=== PATIENT | male | born 1965 | race African-American/Black ===

== ENCOUNTER 2019-11-20 23:55 | Observation (INO) | payer BC, OTHER, SELFPAY ==
--- NOTE | ~2019-11-20 | XR_ITS ---
EXAMINATION: XR chest 2V DATE: 11/21/2019 00:30 INDICATION: Left-sided chest pain. TECHNIQUE: Frontal and lateral views of the chest were obtained. COMPARISON: None. FINDINGS: The chest demonstrates clear lungs without pneumonia, pleural effusion, or pneumothorax. Th e heart size is normal. IMPRESSION: 1. No acute cardiopulmonary disease. Reviewed, dictated and finalized at location A.
--- NOTE | ~2019-11-20 | NM_ITS ---
EXAMINATION: NM stress w perf spect multi DATE: 11/21/2019 12:59 INDICATION: Chest pain. TECHNIQUE: Rest images were obtained following intravenous administration of 9.8 mCi Tc99m tetrofosmi n (STEERads). The patient performed an exercise activity. At peak exercise, 30.5 mCi Tc99m tetrofosmin (Myoview) was administered intravenously, and stress images were obtained. Data was reconstructed in to short axis and horizontal and vertical long axis SPECT images. Gated SPECT images were also obtain ed. COMPARISON: Chest 2 views 11/21/2019 FINDINGS: There is no definite reversible or fixed perfusion abnormality to suggest ischemia or infar ction. There is no segmental wall motion abnormality. Left ventricular ejection fraction measures 6 0%. IMPRESSION: 1. No definite ischemia or infarct. 2. Normal left ventricular ejection fraction measuring 60%. Reviewed, dictated and finalized at location A.
[2019-11-21] VITALS (7 sets, daily range): BP systolic 116–147; BP diastolic 66–89; PULSE 69–86; RESP 12–20; TEMP 36.6–36.7; O2SAT 97–100; BMI 33.8
--- NOTE | 2019-11-21 | EST_ITS ---
Patient Info Name: Golden Amezquita Age: 54 years : 1965 Gender: Male Ht: 69 in Wt: 229 lbs BSA: 2.28 m2 HR: 73 bpm BP: 114 / 68 mmHg Exam Date: 11/21/2019 12:00 PM Exam Location: [facility] Stress Patient Status: Inpatient Admit Date: 11/21/2019 Staff Ordering Physician: Carlos Horowitz MD Attending Provider: Tyler Kenyon MD Exercise Technologist: Mary Jane Hoskins RDCS Nurse: Martha Danielosn, SCOTT, ACNP-BC Exam Type: CA stress test treadmill w NM Study Info Indications R07.89 - Other chest pain A pharmacological stress test was performed. Summary 1. Rare PVC seen in recovery. 2. No abnormal ST/T wave changes with exercise. 3. Please correlate with nuclear medicine images, reported separately. 4. Exercise capacity very good at >10 METS. Protocol: Jose [facility] Stress ECG Details Stage: REST Duration (min): 2 min : 38 sec Speed (mph): 0.0 Grade (%): 0 HR (bpm): 74 SBP (mmHg): 114 DBP (mmHg): 68 METS: --- Stage: REST Duration (min): 11 min : 0 sec Speed (mph): 0.0 Grade (%): 0 HR (bpm): 106 SBP (mmHg): 114 DBP (mmHg): 68 METS: --- Stage: STAGE 1 Duration (min): 1 min : 0 sec Speed (mph): 1.7 Grade (%): 10 HR (bpm): 111 SBP (mmHg): 114 DBP (mmHg): 68 METS: --- Stage: STAGE 1 Duration (min): 2 min : 0 sec Speed (mph): 1.7 Grade (%): 10 HR (bpm): 110 SBP (mmHg): 114 DBP (mmHg): 68 METS: --- Stage: STAGE 1 Duration (min): 3 min : 0 sec Speed (mph): 1.7 Grade (%): 10 HR (bpm): 111 SBP (mmHg): 121 DBP (mmHg): 75 METS: --- Stage: STAGE 2 Duration (min): 1 min : 0 sec Speed (mph): 2.5 Grade (%): 12 HR (bpm): 120 SBP (mmHg): 121 DBP (mmHg): 75 METS: --- Stage: STAGE 2 Duration (min): 2 min : 0 sec Speed (mph): 2.5 Grade (%): 12 HR (bpm): 123 SBP (mmHg): 155 DBP (mmHg): 55 METS: --- Stage: STAGE 2 Duration (min): 3 min : 0 sec Speed (mph): 2.5 Grade (%): 12 HR (bpm): 131 SBP (mmHg): 155 DBP (mmHg): 55 METS: --- Stage: STAGE 3 Duration (min): 1 min : 0 sec Speed (mph): 3.4 Grade (%): 14 HR (bpm): 142 SBP (mmHg): 140 DBP (mmHg): 67 METS: --- Stage: STAGE 3 Duration (min): 2 min : 0 sec Speed (mph): 3.4 Grade (%): 14 HR (bpm): 148 SBP (mmHg): 140 DBP (mmHg): 67 METS: --- Stage: STAGE 3 Duration (min): 3 min : 0 sec Speed (mph): 3.4 Grade (%): 14 HR (bpm): 154 SBP (mmHg): 172 DBP (mmHg): 76 METS: --- Stage: STAGE 4 Duration (min): 1 min : 0 sec Speed (mph): 4.2 Grade (%): 16 HR (bpm): 168 SBP (mmHg): 172 DBP (mmHg): 76 METS: --- Stage: STAGE 4 Duration (min): 1 min : 2 sec Speed (mph): 4.2 Grade (%): 16 HR (bpm): 168 SBP (mmHg): 172 DBP (mmHg): 76 METS: --
--- NOTE | 2019-11-21 00:08 | ECG_ITS ---
Measurements Intervals [place] Rate: 84 P: 38 [place]: 140 QRS: 6 QRSD: 105 T: 26 QT: 343 QTc: 407 Interpretive Statements SINUS RHYTHM INCOMPLETE RIGHT BUNDLE BRANCH BLOCK BORDERLINE ECG Electronically Signed On 11-21-2019 7:05:22 CDT by Dm Simon D.O.
--- NOTE | 2019-11-21 00:11 | ED.CHESTPAIN ---
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: chest pain Timing of current episode: constant and still present Prior episodes: Yes Onset: during rest Pain radiation: none Pain scale (0-10): 7 Relieving factors: nothing Exacerbating factors: nothing Treatment prior to arrival: none Risk Factors Coronary artery disease risk factors: hypertension Related Data Home Medications Medication Instructions Recorded Confirmed alfuzosin [Uroxatral] 10 mg PO DAILY 11/21/19 11/21/19 aspirin 81 mg PO DAILY 11/21/19 11/21/19 lisinopril 40 mg PO DAILY 11/21/19 11/21/19 simvastatin [Zocor] 40 mg PO HS 11/21/19 11/21/19 Allergies Allergy/AdvReac Type Severity Reaction Status Date / Time No Known Allergies Allergy Verified 11/21/19 00:21 Review of Systems Review of Systems: All systems reviewed & are unremarkable except as noted in HPI and below Constitutional: Constitutional: Denies body ache(s), Denies chills, Denies excessive sweating, Denies fatigue, Denies fever(s), Denies headache(s), Denies lethargy, Denies malaise, Denies weakness and Denies weight loss Eyes: Eyes: Denies blurry vision, Denies change in vision and Denies loss of vision ENT: Denies dizziness, Denies ear discharge, Denies headache(s), Denies lip swelling, Denies epistaxis, Denies nasal congestion, Denies neck pain, Denies throat swelling and Denies tongue swelling Cardiovascular: Cardiovascular: Denies chest pain at rest, Denies chest pain with activity, Denies diaphoresis, Denies rapid heart rate, Denies edema, Denies irregular heart rhythm, Denies lightheadedness, Denies palpitations, Denies dyspnea and Denies dyspnea on exertion Respiratory: Respiratory: Denies chest congestion, Denies cough, Denies hemoptysis, Denies dyspnea and Denies dyspnea on exertion Gastrointestinal: Gastrointestinal: Denies abdominal pain, Denies melena, Denies hematochezia, Denies diarrhea, Denies nausea, Denies vomiting and Denies hematemesis Musculoskeletal: Musculoskeletal: Denies abnormal gait, Denies deformity, Denies joint swelling, Denies limited range of motion, Denies neck pain and Denies numbness Neurologic: Denies Abnormal speech present, Denies abnormal gait, Denies confusion, Denies dizziness, Denies headache(s), Denies focal weakness, Denies loss of vision, Denies numbness, Denies Other visual disturbances, Denies Sensory deficit (Neuro) and Denies weakness Psychiatric: Psychiatric: Denies confusion, Denies depression, Denies auditory hallucinations, Denies homicidal ideation and Denies suicidal ideation Endocrine: Endocrine: Denies cold intolerance, Denies excessive sweating, Denies fatigue, Denies heat intolerance and Denies palpitations Hematologic/Lymphatic: Hematologic/Lymphatic: Denies easy bleeding and Denies easy bruising Allergic/Immunologic: Allergic/Immunologic: Denies lip swelling, Denies throat swelling and Denies tongue swelling PMFSH Past Medical History Medical History Dyslipidemia Hypertension Family History Family History Father Malignant neoplasm of prostate Sibling Breast cancer Diabetes mellitus Sibling Diabetes mellitus Sibling Diabetes mellitus Daughter Diabetes mellitus Social History Social History Smoking status: Never smoker Alcohol intake: unknown Substance use: never Living arrangements: with family Additional living arrangements comments: Lives with his Additional occupation/education comments: Works for [employer] Gender identity (if verbalized by the patient): Male Exam Const: General: c
[2019-11-21 00:23] LABS: Basophils Percent Auto 0.2 % (0.2-1.2); Eosinophils Absolute Auto 0.1 K/mm3 (0-0.3); Eosinophils Percent Auto 1.7 % (0-4.4); Hemoglobin 14.2 g/dL (14.0-18.0); Immature Granulocyte Absolute 0.01 K/mm3 (0.00-0.031); Immature Granulocyte Percent A 0.2 % (0-0.5); Lymphocytes Absolute Auto 2.56 K/mm3 (0.9-3.2); Mean Corpuscular Hemoglobin 28.3 pg (26-34); Mean Corpuscular Volume 85.7 fl (80-100); Monocytes Absolute Auto 0.6 K/mm3 (0.1-0.6); Neutrophils Absolute Auto 1.6 K/mm3 (1.3-6.7); Neutrophils Percent Auto 32.9 % (45.5-73.1); Platelet Count Result 169 k/mm3 (150-375); Red Blood Count 5.02 M/mm3 (4.6-6.20); Red Cell Distribution Width 12.1 % (11.5-14.5); White Blood Count 4.8 K/mm3 (4.5-10.0)
[2019-11-21 00:34] LABS: INR 0.9; Prothrombin Time 12.2 Seconds (11.1-14.7)
[2019-11-21] MEDS: ASPIRIN 81 MG CHEWABLE TABLET 324 MG PO (00:35)
[2019-11-21] MEDS: NITROGLYCERIN OINTMENT 1 INCH DOSE (00:35)
--- NOTE | 2019-11-21 00:35 | PC.NURSE ---
md gave this rn verbal orders to not give nitro tablets and to instead give 1in nitro paste due to pt pain decreased to 2/10.
[2019-11-21 00:36] LABS: Blood Urea Nitrogen 15 mg/dL (9-20); Calcium 8.9 mg/dL (8.4-10.2); Carbon Dioxide 28 mmol/L (22-30); Chloride 103 mmol/L (98-107); Estimated CRCL calculation 73 ml/min; Estimated Glomerular Filt Rate > 60; Glucose 96 mg/dL (75-110); Potassium 3.8 mmol/L (3.4-5.0); Sodium 136 mmol/L (137-145)
[2019-11-21 00:47] LABS: Troponin I < 0.012 ng/mL (0.000-0.034)
--- NOTE | 2019-11-21 01:32 | PC.NURSE ---
pt states he doesnt want to stay overnight. this rn informed md. this rn educate pt on AMA process, asked if he would want to stay for a 3 hour troponin. pt states actually, ill just stay. im sorry for being wishy washy. this rn informed doctor of pt decision.
--- NOTE | 2019-11-21 03:08 | ECG_ITS ---
Measurements Intervals [place] Rate: 65 P: 38 NC: 173 QRS: 20 QRSD: 101 T: 3 QT: 380 QTc: 397 Interpretive Statements SINUS RHYTHM INCOMPLETE RIGHT BUNDLE BRANCH BLOCK BORDERLINE ST-T WAVE ABNORMALITY- INFERIOR LEADS BORDERLINE ECG Electronically Signed On 11-21-2019 7:07:30 CDT by Dm Simon D.O.
[2019-11-21 03:37] LABS: Troponin I < 0.012 ng/mL (0.000-0.034)
--- NOTE | 2019-11-21 06:08 | ECG_ITS ---
Measurements Intervals [place] Rate: 61 P: 29 TN: 140 QRS: 14 QRSD: 110 T: 5 QT: 388 QTc: 394 Interpretive Statements SINUS RHYTHM INCOMPLETE RIGHT BUNDLE BRANCH BLOCK BORDERLINE ECG Electronically Signed On 11-21-2019 7:07:00 CDT by Dm Simon D.O.
[2019-11-21 06:45] LABS: Troponin I < 0.012 ng/mL (0.000-0.034)
--- NOTE | 2019-11-21 08:34 | PM.IMHP ---
H&P: HPI History of Present Illness Chief complaint: CHEST PAINS Narrative: Date of service: 11/13/2019 Chief complaint: Chest pain, off and on x3 days HPI:Golden Amezquita is a 54 year old male with past medical history of hypertension, dyslipidemia. Patient presented to [facility] emergency room last night with complaints of chest discomfort. Patient states that he was in his usual state of health until 3 days ago when he started having substernal pressure-like sensation, nonradiating, not associated with shortness of breath, palpitation, dizziness, diaphoresis or syncope. He had 1 episode which lasted for about an hour, nonexertional, and resolved spontaneously. Last night, patient had recurrent episode of substernal chest discomfort and came to the hospital for further evaluation. Patient states that his symptoms were relieved with nitroglycerin. Patient denies any prior cardiac history including clinical DE, angina, heart failure or any arrhythmias. Patient's EKG which I personally evaluated shows sinus rhythm, nonspecific T-wave abnormality in the inferior leads, incomplete right bundle blood block. Serial troponins are negative. Chest x-ray is unremarkable. Review of Systems Constitutional: Constitutional: Denies chills, Denies fatigue, Denies fever(s) and Denies headache(s) Eyes: Eyes: Reports as per HPI, Denies change in vision, Denies loss of vision and Denies eye pain ENT: Reports as per HPI, Reports Normal hearing present, Denies headache(s), Denies lip swelling, Denies epistaxis and Denies sore throat Cardiovascular: Cardiovascular: Reports as per HPI, Reports chest pain, Denies syncope, Denies irregular heart rhythm, Denies lightheadedness and Denies dyspnea Respiratory: Respiratory: Reports as per HPI, Denies cough, Denies dyspnea and Denies wheezing Gastrointestinal: Gastrointestinal: Reports as per HPI, Denies abdominal pain, Denies melena, Denies nausea and Denies vomiting Genitourinary: Genitourinary: Reports as per HPI Musculoskeletal: Musculoskeletal: Reports as per HPI, Denies myalgias, Denies muscle cramps and Denies muscle weakness Integumentary/Breasts: Skin/Breast: Reports as per HPI, Denies pruritus and Denies rash Neurologic: Reports as per HPI, Reports Normal hearing present, Denies behavioral changes, Denies syncope, Denies headache(s) and Denies loss of vision Psychiatric: Psychiatric: Reports as per HPI, Denies anxiety, Denies behavioral changes and Denies depression Endocrine: Endocrine: Reports as per HPI, Denies fatigue, Denies polydipsia and Denies polyuria Hematologic/Lymphatic: Hematologic/Lymphatic: Reports as per HPI, Denies easy bleeding and Denies easy bruising Allergic/Immunologic: Allergic/Immunologic: Reports as per HPI, Denies lip swelling and Denies wheezing PMFSH Past Medical History Medical History Dyslipidemia Hypertension Family History Family History Father Malignant neoplasm of prostate Sibling Breast cancer Diabetes mellitus Sibling Diabetes mellitus Sibling Diabetes mellitus Daughter Diabetes mellitus Social History Social History Smoking status: Never smoker Alcohol intake: unknown Substance use: never Living arrangements: with family Additional living arrangements comments: Lives with his Additional occupation/education comments: Works for [employer] Gender identity (if verbalized by the patient): Male Meds Home Medications and Allergies Home Medications Medication Instructions Recorded Confirmed Type alfuzosin [Uroxatral] 10 mg PO DAILY 11/21/19 11/21/19 History aspirin 81 mg PO DAILY 11/21/19 11/21/19 History lisinopril 40 mg PO DAILY 11/21/19 11/21/19 History simvastatin [Zocor] 40 mg PO HS 11/21/19 11/21/19 History Allergies Allergy/AdvReac Type Severity
== END 2019-11-21 14:10 | disposition home or self-care (01) ==
LOC: ANHED 11-21 01:54 → ANHCPC 11-21 02:14
PROVIDERS: Admitting Provider Internal Medicine Cardiovascular Disease; Emergency Provider Emergency Medicine; Visit Provider Internal Medicine Cardiovascular Disease
DX: R07.9 Chest pain, unspecified (principal); E78.5 Hyperlipidemia, unspecified; I10 Essential (primary) hypertension; Z79.82 Long term (current) use of aspirin; Z79.899 Other long term (current) drug therapy
CPT/HCPCS: 36415; 71046; 78452; 80048; 84484; 85025; 85610; 85730; 93005; 93017; 99285; A9270; A9502; G0378

== ENCOUNTER 2020-03-27 15:47 | Emergency (ER) | payer BC, OTHER, SELFPAY ==
[2020-03-27 15:46] VITALS: BP 108/62; PULSE 64; RESP 18; TEMP 36.6; O2SAT 98
--- NOTE | 2020-03-27 15:52 | ECG_ITS ---
Measurements Intervals [place] Rate: 57 P: 38 MN: 144 QRS: 30 QRSD: 120 T: -7 QT: 417 QTc: 408 Interpretive Statements SINUS BRADYCARDIA INCOMPLETE RIGHT BUNDLE BRANCH BLOCK BASELINE WANDER- I, II, III, AVR, AVL, AVF, V1-V6 BORDERLINE ECG Electronically Signed On 03-27-2020 16:36:09 CDT by Dm Simon D.O.
--- NOTE | 2020-03-27 15:52 | ED.DIZZY ---
HPI - Dizziness General Chief Complaint: Dizziness Stated Complaint: DIZZY History of Present Illness HPI Narrative: He had a prostate biopsy performed this morning at [facility] under general anesthesia. In the car on the way home he became nauseated and light headed. He thought he may pass out. Per EMS blood pressure was low. They started fluids. On arrival here he continues to be nauseated. He has mild pain at the biopsy site. Related Data Home Medications Medication Instructions Recorded Confirmed alfuzosin [Uroxatral] 10 mg PO DAILY 11/21/19 11/21/19 aspirin 81 mg PO DAILY 11/21/19 11/21/19 lisinopril 40 mg PO DAILY 11/21/19 11/21/19 simvastatin [Zocor] 40 mg PO HS 11/21/19 11/21/19 finasteride 1 mg PO DAILY 03/27/20 Allergies Allergy/AdvReac Type Severity Reaction Status Date / Time No Known Allergies Allergy Verified 11/21/19 00:21 Review of Systems Review of Systems: All systems reviewed & are unremarkable except as noted in HPI and below Constitutional: Constitutional: Denies chills and Denies fever(s) Cardiovascular: Cardiovascular: Denies chest pain Respiratory: Respiratory: Denies dyspnea Gastrointestinal: Gastrointestinal: Denies abdominal pain and Reports nausea Neurologic: Reports dizziness, Denies numbness and Denies weakness PMFSH Past Medical History Medical History Dyslipidemia Hypertension Family History Family History Father Malignant neoplasm of prostate Sibling Breast cancer Diabetes mellitus Sibling Diabetes mellitus Sibling Diabetes mellitus Daughter Diabetes mellitus Social History Social History Smoking status: Never smoker Alcohol intake: unknown Substance use: never Additional living arrangements comments: Lives with his Additional occupation/education comments: Works for [email or web address] Gender identity (if verbalized by the patient): Male Exam Const: General: healthy appearing, no acute distress and alert Orientation/consciousness: patient oriented x3 HENMT: Head: normal to inspection Neck: Neck: normal visual inspection and no lymphadenopathy Chest: Chest palpation & inspection: no tenderness Resp: Effort & Inspection: normal respiratory effort Auscultation: clear to auscultation bilaterally, no rales, no rhonchi and no wheezes Cardio: Jugular venous distension: no JVD Rate: bradycardic Rhythm: regular rhythm Heart sounds: no murmurs GI: Inspection: non-distended GI Palp: Yes Soft to palpation and No Tenderness to palpation present (GI) Skin: General skin exam: normal color Neuro: General: patient oriented x3 and moves all extremities Speech: normal speech Extrem: General: no edema Psych: Appearance: well kempt Affect: normal affect Course Vital Signs Vital signs: Vital Signs Temperature 36.6 C 03/27/20 15:46 Pulse Rate 64 03/27/20 15:46 Respiratory Rate 18 03/27/20 15:46 Blood Pressure 108/62 03/27/20 15:46 Pulse Oximetry 98 03/27/20 15:46 Temperature 36.6 C 03/27/20 15:46 Pulse Rate 88 03/27/20 17:39 Respiratory Rate 16 03/27/20 17:39 Blood Pressure 118/70 03/27/20 17:39 Pulse Oximetry 98 03/27/20 17:39 MDM - Dizziness MDM Narrative Medical decision making narrative: Likely post anesthesia reaction. Feeling better after fluids and zofran. Medical Records Attestation: I reviewed the patient's medical records. Discharge Plan Discharge Clinical Impression: Nausea, Near syncope Patient Disposition: Home, Self-Care Condition: Stable Instructions: Near Syncope (ED) Prescriptions: No Action aspirin 81 mg Tablet,Chewable 81 mg PO DAILY RF: 0 simvastatin [Zocor] 40 mg Tablet 40 mg PO HS RF: 0 lisinopril 40 mg Tablet 40 mg PO DAILY RF: 0 alfuzosin [Uroxatral] 10 mg
[2020-03-27] MEDS: ONDANSETRON INJ 4 MG/2 ML VIAL IV PUSH (16:15)
[2020-03-27] MEDS: SODIUM CHLORIDE 0.9% IV 1,000 ML 999 ML IV CONT (16:15)
[2020-03-27 16:57] VITALS: BP 104/79; PULSE 58; RESP 16; O2SAT 97
[2020-03-27 17:39] VITALS: BP 118/70; PULSE 88; RESP 16; O2SAT 98
== END 2020-03-27 17:45 | disposition home or self-care (01) ==
PROVIDERS: Emergency Provider Emergency Medicine
DX: R11.0 Nausea (principal); R55 Syncope and collapse; E78.5 Hyperlipidemia, unspecified; I10 Essential (primary) hypertension; R00.1 Bradycardia, unspecified; I45.10 Unspecified right bundle-branch block
CPT/HCPCS: 93005; 96374; 96375; 99284; J0131; J2405; J7030